=== PATIENT | male | born 1975 | race Caucasian/White ===

== ENCOUNTER 2016-11-29 21:58 | Emergency (ER) | payer BC ==
[2016-11-29] MEDS ORDERED: LIDOCAINE 1% W/ EPINEPHRINE 20 ML VIAL INJ ONE (22:23)
--- NOTE | 2016-11-29 22:32 | ED.PDOC ---
History of Present Illness - General Chief Complaint: Laceration Stated Complaint: left hand laceration Time Seen by Provider: 11/29/16 22:31 Source: patient Exam Limitations: no limitations - History of Present Illness Initial Comments: Craig Tolbert 41 y/o male accidentally injure left hand after glass door accidentally shut closed and broke the glass while picking up broken fragments got in contact with sharp edge incised dorsal aspect left hand. Timing/Duration: just prior to arrival Severity: moderate Location: hands - left Improving Factors: immobilization, rest Worsening Factors: movement Associated Symptoms: denies symptoms Allergies/Adverse Reactions: Allergies Clindamycin Allergy (Verified 11/29/16 22:32) Codeine Allergy (Verified 11/29/16 22:32) Sulfa Antibiotics Allergy (Verified 11/29/16 22:32) Home Medications: Ambulatory Orders Fenofibrate [Tricor] 145 mg PO DAILY 06/22/15 Nebivolol HCl [Bystolic] 5 mg PO DAILY 06/22/15 Pantoprazole Tablet [Protonix] 40 mg PO BID 06/22/15 Cephalexin 1,000 mg PO BID #20 cap 11/29/16 Review of Systems - Review of Systems Constitutional: States: no symptoms reported EENTM: States: no symptoms reported Respiratory: States: no symptoms reported Cardiology: States: no symptoms reported Gastrointestinal/Abdominal: States: no symptoms reported Genitourinary: States: no symptoms reported Musculoskeletal: States: no symptoms reported Skin: States: see HPI Past Medical History (General) - Patient Medical History Hx Congestive Heart Failure: No Hx Hypertension: Yes Hx Diabetes: No Surgical History: other - c-spine surgery - Vaccination History Hx Tetanus, Diphtheria Vaccination: Yes - with in the last 5 years Hx Influenza Vaccination: No Hx Pneumococcal Vaccination: No - Social History Hx Tobacco Use: Yes Hx Alcohol Use: Yes Family Medical History - Family History Father Family History: No Known Hx Cardiac Disease: Yes Physical Exam - Physical Exam General Appearance: Alert, No apparent distress Eyes, Ears, Nose, Throat Exam: PERRL/EOMI, normal ENT inspection Neck: non-tender, supple Cardiovascular/Chest: normal peripheral pulses, regular rate, rhythm, no murmur Respiratory: chest non-tender, lungs clear Gastrointestinal/Abdominal: normal bowel sounds, non tender, soft Back Exam: normal inspection Extremity: normal range of motion, non-tender Neurologic: alert, oriented x 3 Skin Exam: warm/dry, normal color Skin Problem Location: other - left hand 6 cm laceration Skin Character: other - laceration Procedures - Laceration/Wound Repair Left Hand Wound Length (cm): 6 Wound's Depth, Shape: linear Wound Explored: no foreign body removed Irrigated w/ Saline (cc's): 50 Betadine Prep?: Yes Anesthesia: Lidocaine w/ Epi Wound Repaired With: sutures Suture Size/Type: 4:0 Number of Sutures: 9 Layer Closure?: Yes - suture ligation of bleeders and sq layer closure Deep Layer Suture Size/Type: 4:0, vicryl rapide Departure - Departure Clinical Impression: Laceration of left hand Qualifiers: Encounter type: initial encounter Foreign body presence: without foreign body Qualified Code(s): S61.412A - Laceration without foreign body of left hand, initial encounter Time of Disposition: 23:35 Disposition: Discharge to Home or Self Care Condition: Good Departure Forms: ED Discharge - Pt. Copy, Patient Portal Self Enrollment Instructions: How to Care for a Laceration After Repair, DI for Laceration Repair -- Complex Referrals: Iam Chinchilla MD [Primary Care Provider] - 1-2 Weeks Prescriptions: Cephalexin 1,000 mg PO BID #20 cap Home Medications: Ambulatory Orders Fenofibrate [Tricor] 145 mg PO DAILY 06/22/15 Nebivolol HCl [Bystolic] 5 mg PO DAILY 06/22/15 Pantoprazole Tablet [Protonix] 40 mg PO BID 06/22/15 Cephalexin 1,000 mg PO BID #20 cap 11/29/16 Additional Instructions: REMOVAL OF SUTURES 12/11/2016 [facility] ER;Elevate left hand 20 degrees at bedtime for one week;
[2016-11-29 22:33] VITALS: TEMP 97.8; O2SAT 97
[2016-11-29] MEDS ORDERED: POVIDONE IODINE 10 % 15 ML UD TOP ONE (22:52)
[2016-11-29] MEDS ORDERED: NEOMYCIN-BACITRACIN-POLYMYXIN 0.9 GM UD TOP ONE (23:11)
[2016-11-29] MEDS ORDERED: CEPHALEXIN MONOHYDRATE 500 MG CAP PO ONE (23:36)
[2016-11-29] MEDS ORDERED: traMADol HCL 50 MG (ER DISP) # 6 TABS PO ONE (23:40)
[2016-11-29 23:47] VITALS: BP 137/88
== END 2016-11-29 23:52 | disposition home or self-care (01) ==
LOC: ER 21:58
DX: S61.412A Laceration without foreign body of left hand, initial encounter (principal); Z88.6 Allergy status to analgesic agent; Z88.2 Allergy status to sulfonamides; Z88.3 Allergy status to other anti-infective agents; Z87.891 Personal history of nicotine dependence; Z79.899 Other long term (current) drug therapy; W25.XXXA Contact with sharp glass, initial encounter

== ENCOUNTER 2017-10-16 08:02 | Emergency (ER) | payer BC ==
--- NOTE | 2017-10-16 08:55 | RAD ---
EXAM DESCRIPTION: Chest,2 Views CLINICAL HISTORY: 42 years Male, dizziness COMPARISON: None available. TECHNIQUE: PA and lateral radiographs of the chest were obtained. FINDINGS: Trachea is midline.The cardiomediastinal silhouette is normal in size. The pulmonary vasculature is within normal limits.The lungs are clear with no acute consolidation.No evidence of pleural effusions.No evidence of pneumothorax. IMPRESSION: No acute cardiopulmonary process. Electronically signed by: Radha Win MD 10/16/2017 8:53 AM CDT
--- NOTE | 2017-10-16 10:52 | ED.PDOC ---
History of Present Illness - General Chief Complaint: Cardiovascular Problem Stated Complaint: Dizziness, SOB, weakness Time Seen by Provider: 10/16/17 08:11 Source: patient Exam Limitations: no limitations - History of Present Illness Initial Comments: The patient is a 42-year-old male presenting to the emergency room secondary to persistent dizziness. 2 days ago the patient was working outside on a deck and significantly overheated. Yesterday he went to his primary care doctor's office and received 2 L of IV fluids. No blood work was done. He was written for some meclizine for the dizziness. There were no focal neurological changes. He is alert and oriented and ambulatory but is still having some persistent dizziness. No evidence of true vertigo. No significant nystagmus. No focal neurological deficits. He has had a head CT that was essentially normal here within the last 2 years. No history of any arrhythmia. No history of any clotting issues. He had a stress test within the last year that was within normal limits according to him. He was recently changed to [employer] to help control his hypertension. He is currently undergoing a workup for his persistent hypertension. He reports that the [employer] worked well for about 5 days until he overheated. Since he received IV fluids yesterday his blood pressures have been more elevated. He is tolerating oral intake. No headache just mainly dizziness. Timing/Duration: unsure Severity: moderate Improving Factors: nothing Worsening Factors: nothing Associated Symptoms: denies symptoms Allergies/Adverse Reactions: Allergies Clindamycin Allergy (Verified 11/29/16 22:32) Codeine Allergy (Verified 11/29/16 22:32) Sulfa Antibiotics Allergy (Verified 11/29/16 22:32) Home Medications: Ambulatory Orders Pantoprazole Tablet [Protonix] 40 mg PO BID 06/22/15 Alprazolam [Xanax] 1 mg PO QID PRN 10/16/17 Carvedilol [Carvedilol] 25 mg PO BID 10/16/17 Citalopram Hydrobromide [Citalopram] 20 mg PO DAILY 10/16/17 Losartan Potassium 100 mg PO DAILY 10/16/17 Rosuvastatin Calcium 20 mg PO DAILY 10/16/17 Review of Systems - Review of Systems Constitutional: States: malaise - 6 EENTM: States: no symptoms reported Respiratory: States: no symptoms reported Cardiology: States: no symptoms reported Gastrointestinal/Abdominal: States: no symptoms reported Genitourinary: States: no symptoms reported Musculoskeletal: States: no symptoms reported Skin: States: no symptoms reported Neurological: States: see HPI Endocrine: States: no symptoms reported All other Systems: No Change from Baseline Past Medical History (General) - Patient Medical History Hx Stroke: No Hx Cardiac Disorders: Yes Hx Congestive Heart Failure: No Hx Hypertension: Yes Hx Diabetes: No Hx Gastroesophageal Reflux: Yes Surgical History: other - Vaccination History Hx Tetanus, Diphtheria Vaccination: Yes - with in the last 5 years Hx Influenza Vaccination: No Hx Pneumococcal Vaccination: No - Social History Hx Tobacco Use: Yes Hx Alcohol Use: Yes Family Medical History - Family History Father Family History: No Known Living Status: Age at (years of age): 45 Cause of : [place] Hx Family Hypertension: Yes Hx Cardiac Disease: Yes Physical Exam - Physical Exam General Appearance: Alert, Anxious, No apparent distress Eye Exam: bilateral normal Ears, Nose, Throat: hearing grossly normal, normal ENT inspection, normal pharynx Neck: full range of motion, supple Respiratory: lungs clear, normal breath sounds, no respiratory distress, no accessory muscle use Cardiovascular/Chest: normal peripheral pulses, regular rate, rhythm, no edema Peripheral Pulses: radial,right: 2+, radial,left: 2+, dorsalis pedis,right: 2+, dorsalis pedis,left: 2+ Gastrointestinal/Abdominal: non tender, soft Rectal Exam: deferred Back Exam: normal inspection, no CVA tenderness Extremity: normal range of motion, non-tender, normal inspection, no pedal edema , normal capillary refill 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 He had a head CT here within the last 2 years that was essentially normal. Symptoms will likely persist for the next week at least. He needs to avoid overheating and overexerting. He does need to complete his workup for uncontrolled hypertension with his primary care doctor. He does need to continue his blood pressure log. He should hold his statin for the next 2 weeks after the heat exhaustion. He needs to keep himself well hydrated. Anxiety may also be contributing to some of his higher blood pressure readings. He does need to keep follow-up with his primary care doctor next week and rearrange his imaging on his kidneys and adrenals. - Results/Orders Results/Orders: chest x-ray shows no obvious cardiomegaly and no pulmonary congestion. No infiltrate. No pneumothorax. No mass. EKG shows normal sinus rhythm at a rate of 68 bpm. Normal QT interval. Long- term right bundle branch block is still present. Otherwise no acute ST segment changes concerning for ischemia. Laboratory Tests 10/16/17 10/16/17 10/16/17 08:15 08:15 08:15 WBC 6.3 RBC 4.09 L Hgb 13.5 L Hct 39.6 L MCV 96.8 H MCH 33.0 H MCHC 34.1 RDW 15.4 H Plt Count 211 MPV 7.9 Absolute Neuts (auto) 4.60 Absolute Lymphs (auto) 1.30 Absolute Monos (auto) 0.40 Absolute Eos (auto) 0.10 Absolute Basos (auto) 0.00 Neutrophils % 72.0 Lymphocytes % 20.6 Monocytes % 5.5 Eosinophils % 1.6 Basophils % 0.3 PT 9.5 INR 0.820 PTT (SP) 17.9 L D-Dimer, Quantitative < 230 Sodium 138 Potassium 3.6 Chloride 107 Carbon Dioxide 24 Anion Gap 10.6 L BUN 7 Creatinine 0.88 BUN/Creatinine Ratio 8.0 L Random Glucose 95 Serum Osmolality 273.5 L Lactic Acid Calcium 8.7 Magnesium 1.9 Total Bilirubin 0.3 AST 46 H ALT 43 Alkaline Phosphatase 61 Creatine Kinase 76 CK-MB (CK-2) 0.6 CK-MB (CK-2) % Not Reportable Troponin I < 0.02 B-Natriuretic Peptide 192.0 H Serum Total Protein 6.0 L Albumin 3.3 Globulin 2.7 Albumin/Globulin Ratio 1.2 TSH 3.33 Urine Color Urine Appearance Urine pH Ur Specific [place] Urine Protein Urine Glucose (UA) Urine Ketones Urine Blood Urine Nitrite Urine Bilirubin Urine Urobilinogen Ur Leukocyte Esterase Urine RBC Urine WBC Ur Epithelial Cells Urine Bacteria Urine Opiates Screen Urine Barbiturates Ur Phencyclidine Scrn U Amphetamin/Meth Scrn U Benzodiazepines Scrn U Cocaine Metab Screen U Cannabinoids Screen Ethyl Alcohol 10/16/17 10/16/17 10/16/17 08:15 08:15 10:15 WBC RBC Hgb Hct MCV MCH MCHC RDW Plt Count MPV Absolute Neuts (auto) Absolute Lymphs (auto) Absolute Monos (auto) Absolute Eos (auto) Absolute Basos (auto) Neutrophils % Lymphocytes % Monocytes % Eosinophils % Basophils % PT INR PTT (SP) D-Dimer, Quantitative Sodium Potassium Chloride Carbon Dioxide Anion Gap BUN Creatinine BUN/Creatinine Ratio Random Glucose Serum Osmolality Lactic Acid 1.0 Calcium Magnesium Total Bilirubin AST ALT Alkaline Phosphatase Creatine Kinase CK-MB (CK-2) CK-MB (CK-2) % Troponin I B-Natriuretic Peptide Serum Total Protein Albumin Globulin Albumin/Globulin Ratio TSH Urine Color Urine Appearance Urine pH Ur Specific [place] Urine Protein Urine Glucose (UA) Urine Ketones Urine Blood Urine Nitrite Urine Bilirubin Urine Urobilinogen Ur Leukocyte Esterase Urine RBC Urine WBC Ur Epithelial Cells Urine Bacteria Urine Opiates Screen Negative Urine Barbiturates Negative Ur Phencyclidine Scrn Negative U Amphetamin/Meth Scrn Negative U Benzodiazepines Scrn Positive H U Cocaine Metab Screen Negative U Cannabinoids Screen Positive H Ethyl Alcohol < 5.40 10/16/17 10:15 WBC RBC Hgb Hct MCV MCH MCHC RDW Plt Count MPV Absolute Neuts (auto) Absolute Lymphs (auto) Absolute Monos (auto) Absolute Eos (auto) Absolute Basos (auto) Neutrophils % Lymphocytes % Monocytes % Eosinophils % Basophils % PT INR PTT (SP) D-Dimer, Quantitative Sodium Potassium Chloride Carbon Dioxide Anion Gap BUN Creatinine BUN/Creatinine Ratio Random Glucose Serum Osmolality Lactic Acid Calcium Magnesium Total Bilirubin AST ALT Alkaline Phosphatase Creatine Kinase CK-MB (CK-2) CK-MB (CK-2) % Troponin I B-Natriuretic Peptide Serum Total Protein Albumin Globulin Albumin/Globulin Ratio TSH Urine Color Yellow Urine Appearance Clear Urine pH 7.0 Ur Specific [place] 1.015 Urine Protein Negative Urine Glucose (UA) Negative Urine Ketones Negative Urine Blood Trace-intact H Urine Nitrite Negative Urine Bilirubin Negative Urine Urobilinogen 0.2 Ur Leukocyte Esterase Negative Urine RBC 0 Urine WBC 0 Ur Epithelial Cells 0 Urine Bacteria 0 Urine Opiates Screen Urine Barbiturates Ur Phencyclidine Scrn U Amphetamin/Meth Scrn U Benzodiazepines Scrn U Cocaine Metab Screen U Cannabinoids Screen Ethyl Alcohol Departure - Departure Clinical Impression: Heat exhaustion Qualifiers: Encounter type: initial encounter Qualified Code(s): T67.5XXA - Heat exhaustion , unspecified, initial encounter Disposition: Discharge to Home or Self Care Condition: Fair Departure Forms: ED Discharge - Pt. Copy, Patient Portal Self Enrollment Instructions: DI for Heat Exhaustion and Heat Stroke Diet: regular diet Activity: increase activity as tolerated Referrals: Charles Altman MD [Primary Care Provider] - 1-2 Weeks Home Medications: Ambulatory Orders Pantoprazole Tablet [Protonix] 40 mg PO BID 06/22/15 Alprazolam [Xanax] 1 mg PO QID PRN 10/16/17 Carvedilol [Carvedilol] 25 mg PO BID 10/16/17 Citalopram Hydrobromide [Citalopram] 20 mg PO DAILY 10/16/17 Losartan Potassium 100 mg PO DAILY 10/16/17 Rosuvastatin Calcium 20 mg PO DAILY 10/16/17 Additional Instructions: the patient's a 42-year-old male presenting to the emergency room secondary to what appears to be persistent dizziness from heat exhaustion. He had a head CT here within the last 2 years that was essentially normal. Symptoms will likely persist for the next week at least. He needs to avoid overheating and overexerting. He does need to complete his workup for uncontrolled hypertension with his primary care doctor. He does need to continue his blood pressure log. He should hold his statin for the next 2 weeks after the heat exhaustion. He needs to keep himself well hydrated. Anxiety may also be contributing to some of his higher blood pressure readings. He does need to keep follow-up with his primary care doctor next week and rearrange his imaging on his kidneys and adrenals.
[2017-10-16 11:10] VITALS: BP 162/97; TEMP 96.8; O2SAT 100
== END 2017-10-16 11:00 | disposition home or self-care (01) ==
LOC: ER 08:02
DX: T67.5XXA Heat exhaustion, unspecified, initial encounter (principal); I10 Essential (primary) hypertension; K21.9 Gastro-esophageal reflux disease without esophagitis; X30.XXXA Exposure to excessive natural heat, initial encounter

== ENCOUNTER 2017-10-24 06:04 | Emergency (ER) | payer BC ==
[2017-10-24] MEDS ORDERED: NITROGLYCERIN 0.4 MG 25 EA TAB SL ONE ×2 (06:11→06:15)
[2017-10-24] MEDS ORDERED: ASPIRIN TABLET 325 MG TAB ONE (06:12)
[2017-10-24] MEDS ORDERED: ONDANSETRON INJ 4 MG/2 ML VIAL IV ONE (06:15)
[2017-10-24] MEDS ORDERED: ASPIRIN TABLET 325 MG TAB PO ONE (06:15)
[2017-10-24] MEDS ORDERED: SODIUM CHLORIDE 0.9% 500ML 500 ML IVS PRN (06:26)
--- NOTE | 2017-10-24 06:33 | ED.PDOC ---
History of Present Illness - General Source: patient Exam Limitations: no limitations - History of Present Illness Initial Comments: Craig Tolbert 42 y/o male brought by with chest pressure at about 0430H w/c woke him up from sleep radiating to his back,had also been dizzy and sob.On his arrival at ER he was given NTG SL and Aspirin which gradually eased his symptoms.Has been here at ER 3 days ago for heat related illness and was advised to rest but went back to work the following day.has history of HTN. Timing/Duration: 1-3 hours Severity: moderate Location: central Activities at Onset: sleep Prior Chest Pain/Cardiac Workup: no prior chest pain, no prior cardiac workup Improving Factors: nothing Worsening Factors: nothing Nitro Today/Relief: 0.4 mg x 1, provided by ED, mild relief Aspirin Treatment Today: 81 mg x 4, provided by ED Associated Symptoms: shortness of breath, other - see hpi <Pito Lora - Last Filed: 10/24/17 06:47> <Travis Blanco - Last Filed: 10/24/17 09:45> - General Chief Complaint: Chest Pain/[place] Stated Complaint: chest pressure Time Seen by Provider: 10/24/17 06:16 - History of Present Illness Allergies/Adverse Reactions: Allergies Clindamycin Allergy (Verified 11/29/16 22:32) Codeine Allergy (Verified 11/29/16 22:32) Sulfa Antibiotics Allergy (Verified 11/29/16 22:32) Home Medications: Ambulatory Orders Pantoprazole Tablet [Protonix] 40 mg PO BID 06/22/15 Alprazolam [Xanax] 1 mg PO QID PRN 10/16/17 Carvedilol [Carvedilol] 25 mg PO BID 10/16/17 Losartan Potassium 100 mg PO DAILY 10/16/17 Rosuvastatin Calcium 20 mg PO DAILY 10/16/17 Review of Systems - Review of Systems Constitutional: States: no symptoms reported EENTM: States: no symptoms reported Respiratory: States: no symptoms reported Cardiology: States: see HPI Genitourinary: States: no symptoms reported Musculoskeletal: States: no symptoms reported Neurological: States: no symptoms reported All other Systems: Reviewed and Negative, No Change from Baseline <Pito Lora - Last Filed: 10/24/17 06:47> Past Medical History (General) - Patient Medical History Hx Stroke: No Hx Cardiac Disorders: Yes Hx Congestive Heart Failure: No Hx Hypertension: Yes Hx Diabetes: No Hx Gastroesophageal Reflux: Yes Hx Other PMH: Yes - h. Pylori positive took antibiotics Surgical History: other - c- spine - Vaccination History Hx Tetanus, Diphtheria Vaccination: Yes - with in the last 5 years Hx Influenza Vaccination: No Hx Pneumococcal Vaccination: No - Social History Hx Tobacco Use: Yes Hx Alcohol Use: Yes - occ <Pito Lora R - Last Filed: 10/24/17 06:47> Family Medical History - Family History Father Family History: No Known Living Status: Age at (years of age): 44 Cause of : [place] Hx Family Hypertension: Yes Hx Cardiac Disease: Yes <Pito Lora R - Last Filed: 10/24/17 06:47> Physical Exam - Physical Exam General Appearance: Alert, Comfortable, No apparent distress Eyes, Ears, Nose, Throat Exam: normal ENT inspection Neck: non-tender, supple, normal inspection Respiratory: chest non-tender, lungs clear, normal breath sounds Cardiovascular/Chest: normal peripheral pulses, regular rate, rhythm, no murmur Peripheral Pulses: radial,right: 2+, radial,left: 2+ Gastrointestinal/Abdominal: non tender, soft, no organomegaly Extremity: non-tender, normal inspection, no pedal edema, no calf tenderness Neurologic: alert, oriented x 3 Skin Exam: normal color, warm/dry <Pito Lora R - Last Filed: 10/24/17 06:47> Progress - Progress Progress: 10/24/17 06:36 Vital Signs - 8 hr 10/24/17 10/24/17 06:15 06:26 Temperature 96.9 F L Pulse Rate 96 H Pulse Rate [ 90 88 left] Respiratory 18 22 Rate Blood Pressure 155/98 [left] O2 Sat by Pulse 100 Oximetry - EKG/XRAY/CT EKG: Sinus, no ST T wave changes Comments: HR XRAY: chest - no active disease <Pito Lora R - Last Filed: 10/24/17 06:47> - Progress Progress: 10/24/17 09:41 SECOND SET OF TROPONIN NEG CTA CHST NEG FOR PE PT IS RESTING NO SYMPTOMS OF CHEST PAIN AFTER THE LAST EPISODE BECAUSE OF THE RISK FACTORS FAMILY HISTORY CIGARETTE SMOKING PROLONGED CHEST PAIN HE WAS RECOMMENDED TO BE TRANSFERED TO HIGHER LEVEL OF CARE FOR CARDIOLOGY CONSULTATION HE DOES NOT WANT TO BE TRANSFERED BY AMBULANCE\ HE WOULD RATHER GO BY HIS PRIVATE VEHICLE HE PREFERS TO SIGN AGAINST MEDICAL ADVICE AND DRIVE TO [employer] <Travis Blanco - Last Filed: 10/24/17 09:45> Departure <VashtiMary regaladomarsha Aldrich - Last Filed: 10/24/17 06:47> - Departure Time of Disposition: 09:44 Activity: no exercise <Travis Blanco - Last Filed: 10/24/17 09:45> - Departure Clinical Impression: Chest pain Disposition: Left Against Medical Advice Condition: Fair Departure Forms: ED Discharge - Pt. Copy, Patient Portal Self Enrollment Instructions: DI for Chest Pain Referrals: Charles Altman MD [Primary Care Provider] - 1-2 Weeks Home Medications: Ambulatory Orders Pantoprazole Tablet [Protonix] 40 mg PO BID 06/22/15 Alprazolam [Xanax] 1 mg PO QID PRN 10/16/17 Carvedilol [Carvedilol] 25 mg PO BID 10/16/17 Losartan Potassium 100 mg PO DAILY 10/16/17 Rosuvastatin Calcium 20 mg PO DAILY 10/16/17
--- NOTE | 2017-10-24 06:45 | RAD ---
Chest single view on 10/24/2017 CLINICAL INDICATION: Chest pain COMPARISON: 10/16/2017 FINDINGS: The lungs are clear. Cardiac, hilar and mediastinal contours are within normal limits. Pulmonary vascularity is within normal limits. Fusion hardware is noted in the lower cervical spine. No acute bony abnormality is noted. IMPRESSION: No active disease. Electronically signed by: Patrice Ennis 10/24/2017 6:44 AM CDT
[2017-10-24] MEDS ORDERED: diazePAM 2 MG TAB ONE (07:59)
[2017-10-24] MEDS ORDERED: diazePAM 2 MG TAB PO ONE (08:01)
--- NOTE | 2017-10-24 08:07 | CT ---
Procedure: CT CHEST ANGIOGRAPHY WITH IV CONTRAST Exam Date: 10/24/2017 Ordering Provider: Travis Blanco Clinical Indication: Chest pain Comparison: 10/24/2017 chest x-ray Technique: Using a multislice scanner, sequential axial imaging was obtained in the thorax from the level of the thoracic inlet through the lung bases after intravenous contrast administration. The contrast bolus was timed to evaluate the pulmonary arteries for thrombus. MIP coronal and sagittal reformatted images were obtained. This exam was performed according to our departmental dose optimization program which includes use of automated exposure control, adjustment of the mA and/or kV according to patient size and/or use of iterative reconstruction technique. Findings: There are no pulmonary emboli. Lungs and large airways: No focal lung consolidation. Mild paraseptal emphysematous change. Bibasilar subsegmental atelectasis, right greater than left. Atelectasis/scarring in the lingula. Mediastinum and wilmer: Shotty mediastinal lymph nodes. Pleura: No significant pleural effusion or pneumothorax. Heart and great vessels: Heart is not enlarged. No pericardial effusion. No aortic aneurysm or dissection. Chest wall, lower neck, axillae: Unremarkable Upper abdomen: Nonacute Bones: Nonacute. Postsurgical changes in the cervical spine. IMPRESSION: 1. No pulmonary embolism. 2. No focal lung consolidation. Electronically signed by: Venancio Bell MD 10/24/2017 8:05 AM CDT
[2017-10-24 08:32] VITALS: O2SAT 99
[2017-10-24 10:07] VITALS: BP 140/81
[2017-10-24 10:11] VITALS: TEMP 98.8
== END 2017-10-24 10:10 | disposition left against medical advice (07) ==
LOC: ER 06:04
DX: R07.89 Other chest pain (principal); R06.02 Shortness of breath; I10 Essential (primary) hypertension; K21.9 Gastro-esophageal reflux disease without esophagitis; Z53.29 Procedure and treatment not carried out because of patient's decision for other reasons; Z82.41 Family history of sudden cardiac death; Z82.49 Family history of ischemic heart disease and other diseases of the circulatory system; Z79.899 Other long term (current) drug therapy; Z88.5 Allergy status to narcotic agent; Z87.891 Personal history of nicotine dependence; Z88.2 Allergy status to sulfonamides; Z88.1 Allergy status to other antibiotic agents
CPT/HCPCS: 36415; 71045; 71275; 80048; 80076; 80307; 80320; 81001; 82550; 82553; 83880; 84484; 85025; 85379; 85610; 85730; 93005; J2405; J7040

== ENCOUNTER → 2019-12-15 | Outpatient (CLI) | payer BC ==
--- NOTE | 2019-12-16 08:43 | RAD ---
EXAM DESCRIPTION: Hip,Left 2 Views CLINICAL HISTORY: 44 years Male, PAIN OF LEFT HIP COMPARISON: None. TECHNIQUE: 2 view radiographs of the left hip. IMPRESSION: Partially obscured sacrum and coccyx by overlying bowel. No acute displaced fracture. No dislocation. Moderate arthrosis of the left hip. Intact pubic joint. Electronically signed by: Srinivasan Ventura MD 12/16/2019 8:41 AM CDT
== END ==
LOC: RAD 11:25
PROVIDERS: ATTEND General Practice
DX: M16.12 Unilateral primary osteoarthritis, left hip (principal)

== ENCOUNTER → 2020-02-03 | Outpatient (CLI) | payer BC | LOC: YCFC.O 16:22 | PROVIDERS: ATTEND Nurse Practitioner Family | DX: Z03.818 Encounter for observation for suspected exposure to other biological agents ruled out (principal); Z20.828 Contact with and (suspected) exposure to other viral communicable diseases ==